=== PATIENT | male | born 1980 | race Two or more races ===

== ENCOUNTER 2017-03-17 08:59 | Emergency (ER) | payer OTHER ==
[~2017-03-17] VITALS: Ht 177.8 cm; Wt 77.1 kg
[2017-03-17 08:59] VITALS: BP 118/80
== END 2017-03-17 09:48 ==
LOC: ER 09:04
DX: F19.10 Other psychoactive substance abuse, uncomplicated (principal); E11.9 Type 2 diabetes mellitus without complications
CPT/HCPCS: 99283; A4606; Z7610